=== PATIENT | female | born 1980 | race African-American/Black ===

== ENCOUNTER 2021-08-09 20:04 | Emergency (ER) | payer MEDICAID, OTHER ==
[~2021-08-09] VITALS: Ht 162.6 cm; Wt 83.0 kg
[2021-08-09 20:18] VITALS: BP 153/85
[2021-08-09] MEDS ORDERED: DIPH25CA83 MT (21:14)
[2021-08-09] MEDS ORDERED: LORA10TA7 MT (21:15)
== END 2021-08-09 21:21 | disposition home or self-care (01) ==
LOC: ER 20:04
DX: L25.9 Unspecified contact dermatitis, unspecified cause (principal); J45.909 Unspecified asthma, uncomplicated; Z88.6 Allergy status to analgesic agent
CPT/HCPCS: 99282

== ENCOUNTER 2021-08-26 15:17 | Inpatient (IN) | payer MEDICAID, OTHER ==
[~2021-08-26] VITALS: Ht 162.6 cm; Wt 83.0 kg
[~2021-08-26 15:17] MED LIST: DIPH25CA83 MT; LORA10TA7 MT
[2021-08-26] MEDS ORDERED: PREN1TAB22 PO (15:58)
[2021-08-26] MEDS ORDERED: NALOXONE HCL 0.4 MG/ML 1ML VIAL IM PRN (17:00)
[2021-08-26] MEDS ORDERED: METHYLERGONOVINE MALEATE 0.2 MG/ML IM PRN (17:00)
[2021-08-26] MEDS ORDERED: LIDOCAINE HCL 1% 20ML VIAL (Pyxis) INJ INFIL SCH (17:00)
[2021-08-26] MEDS ORDERED: CARBOPROST TROMETHAMINE 250 MCG/ML AMPUL IM PRN (17:00)
[2021-08-26] MEDS ORDERED: BUTORPHANOL TARTRATE 2 MG/ML VIAL IV PRN (17:00)
[2021-08-26] MEDS ORDERED: MISOPROSTOL 100MCG TABLET VG SCH (17:00)
[2021-08-26 17:02] LABS: CLARITY URINE CLEAR (CLEAR); COLOR URINE YELLOW (YELLOW); KETONES URINE NEGATIVE (NEGATIVE); LEUKOCYTE ESTERASE URINE 3+ (NEGATIVE); NITRITE URINE NEGATIVE (NEGATIVE); OCCULT BLOOD URINE NEGATIVE (NEGATIVE); PROTEIN URINE NEGATIVE (NEGATIVE); SPECIFIC GRAVITY URINE 1.007 (1.005-1.030); UROBILINOGEN URINE 0.2 E.U./dL (0.2-1.0)
[2021-08-26 17:05] LABS: BASOPHILS % 0.6 % (0.0-2.0); EOSINOPHILS % 0.9 % (0.0-5.0); HEMATOCRIT. 37.7 % (36.0-48.0); HEMOGLOBIN. 12.8 g/dL (12.0-16.0); LYMPHOCYTES % 16.8 % (20.0-50.0); MEAN CORPUSCULAR VOLUME 91.4 fL (81.0-99.0); MEAN PLATELET VOLUME 12.2 fl (7.4-10.4); MONOCYTES % 7.4 % (2.0-8.0); NEUTROPHILS % 74.3 % (40.0-76.0); PLATELET 105 x1000/uL (130-400); RED BLOOD CELL COUNT 4.13 mill/uL (4.2-5.4)
[2021-08-26 17:17] LABS: *AMPHETAMINES SCREEN URINE NEGATIVE (NEGATIVE)
[2021-08-26 17:18] LABS: *BARBITURATES SCREEN URINE NEGATIVE (NEGATIVE); *BENZODIAZEPINES SCREEN URINE NEGATIVE (NEGATIVE); *COCAINE SCREEN URINE NEGATIVE (NEGATIVE); METHADONE URINE SCREEN NEGATIVE (NEGATIVE); PHENCYCLIDINE URINE SCREEN NEGATIVE (NEGATIVE)
[2021-08-26 17:20] LABS: CANNABINOID URINE SCREEN NEGATIVE (NEGATIVE)
[2021-08-26 17:24] LABS: INR 0.9; PARTIAL THROMBOPLASTIN TIME 26.2 sec (23.4-31.0)
[2021-08-26 17:29] LABS: OPIATES URINE SCREEN NEGATIVE (NEGATIVE)
[2021-08-26 17:41] LABS: HEPATITIS B SURFACE ANTIGEN NEGATIVE
[2021-08-26] MEDS: DEXT 5%/LR + PITOCIN 20UNITS/L 1,000 ML IV SCH (18:00)
[2021-08-26] MEDS: LACTATED RINGERS 1,000 ML IV SCH ×2 (18:12→20:03)
[2021-08-26] MEDS ORDERED: DIPHENHYDRAMINE 50MG/ML VIAL IV PRN (19:15)
[2021-08-26] MEDS ORDERED: ROPIVACAINE HCL/PF EPIDURAL 200 ML EPI SCH (19:15)
[2021-08-26] MEDS ORDERED: ONDANSETRON HCL 4MG/2ML INJ IV PRN (19:15)
[2021-08-26] MEDS ORDERED: CITRIC ACID/SODIUM CITRATE SOLN 30ML UDC PO NR (20:45)
[2021-08-26] MEDS: MAGNESIUM 20 G PREMIX (L & D) 500 ML IV SCH ×2 (20:54→21:16)
[2021-08-26 21:19] LABS: CHLORIDE 111 mEq/L (98-107)
[2021-08-26 21:22] LABS: D-DIMER 1.78 mg/L FEU (<0.50)
[2021-08-26] MEDS ORDERED: ACETAMINOPHEN 325MG TABLET PO PRN (21:45)
[2021-08-27] MEDS: LACTATED RINGERS 1,000 ML IV SCH (05:30)
[2021-08-27] MEDS ORDERED: FENTANYL CITRATE/PF 50MCG/ML 2ML VIAL ONE ×3 (10:21→18:26)
[2021-08-27] MEDS ORDERED: BENZOCAINE/LANOLIN/ALOE VERA SPRAY TOP PRN (21:00)
[2021-08-27] MEDS ORDERED: ACETAMINOPHEN WITH CODEINE 300/30MG TABLET PO PRN (21:00)
[2021-08-27] MEDS ORDERED: LANOLIN OINT 7GM TUBE TOP PRN (21:00)
[2021-08-27] MEDS ORDERED: GLYCERIN/WITCH HAZEL LEAF MEDICATED PAD TOP PRN (21:00)
[2021-08-27] MEDS: SIMETHICONE 80MG TABLET CHEW PO SCH (21:00)
[2021-08-27] MEDS: DOCUSATE SODIUM 100MG CAPSULE PO SCH (21:00)
[2021-08-27] MEDS ORDERED: HEMORRHOIDAL SUPP PR PRN (21:00)
[2021-08-27] MEDS ORDERED: DEXT 5%/LR + PITOCIN 20UNITS/L 1,000 ML IV SCH (21:00)
[2021-08-27] MEDS: MAGNESIUM/ALUMINUM HYDROXIDE/SIMETHICONE 30ML UDC PO SCH (21:00)
[2021-08-27] MEDS ORDERED: RHO(D) IMMUNE GLOBULIN 300 MCG/SYR IM PRN (21:00)
[2021-08-27] MEDS ORDERED: BISACODYL 10MG SUPP PR PRN (21:00)
[2021-08-27] MEDS ORDERED: LABETALOL HCL 100MG TABLET PO SCH (21:45)
[2021-08-27] MEDS: DEXT 5%/LR + PITOCIN 20UNITS/L 1,000 ML IV SCH (22:21)
[2021-08-28] VITALS (9 sets, daily range): BP systolic 132–155; BP diastolic 80–90
[2021-08-28] MEDS: MAGNESIUM/ALUMINUM HYDROXIDE/SIMETHICONE 30ML UDC PO SCH ×4 (07:30→22:13)
[2021-08-28 07:46] LABS: HEMATOCRIT. 35.8 % (36.0-48.0); HEMOGLOBIN. 11.8 g/dL (12.0-16.0); MEAN CORPUSCULAR VOLUME 94.2 fL (81.0-99.0); MEAN PLATELET VOLUME 12.2 fl (7.4-10.4); PLATELET 100 x1000/uL (130-400); RED CELL DISTRIBUTION WIDTH 14.5 % (11.6-14.6)
[2021-08-28] MEDS: SIMETHICONE 80MG TABLET CHEW PO SCH ×4 (08:00→22:14)
[2021-08-28] MEDS ORDERED: PRENATAL VIT/FE FUMARATE/FA TABLET PO SCH (09:00)
[2021-08-28] MEDS: IBUPROFEN 400MG TABLET PO PRN (09:01)
[2021-08-28] MEDS: LABETALOL HCL 200MG TABLET PO SCH ×2 (10:25→23:45)
[2021-08-28] MEDS: FERROUS SULFATE 325MG TABLET PO SCH ×3 (10:25→17:30)
[2021-08-28 13:52] LABS: PLATELET ESTIMATE DECREASED
[2021-08-28 19:47] LABS: BASOPHILS % 0.3 % (0.0-2.0); EOSINOPHILS % 0.9 % (0.0-5.0); HEMATOCRIT. 39.9 % (36.0-48.0); HEMOGLOBIN. 12.5 g/dL (12.0-16.0); LYMPHOCYTES % 11.6 % (20.0-50.0); MEAN CORPUSCULAR HEMOGLOBIN 29.7 pg (28.0-32.0); MEAN CORPUSCULAR VOLUME 94.8 fL (81.0-99.0); MONOCYTES % 6.2 % (2.0-8.0); PLATELET 114 x1000/uL (130-400); RED BLOOD CELL COUNT 4.21 mill/uL (4.2-5.4); RED CELL DISTRIBUTION WIDTH 14.4 % (11.6-14.6)
[2021-08-28] MEDS: DOCUSATE SODIUM 100MG CAPSULE PO SCH (22:15)
[2021-08-28] MEDS: ACETAMINOPHEN WITH CODEINE 300/30MG TABLET PO PRN (22:18)
[2021-08-29 04:30] VITALS: BP 132/85
[2021-08-29] MEDS: ACETAMINOPHEN WITH CODEINE 300/30MG TABLET PO PRN ×2 (05:08→05:14)
[2021-08-29 07:08] LABS: BASOPHILS % 0.3 % (0.0-2.0); EOSINOPHILS % 1.9 % (0.0-5.0); HEMATOCRIT. 35.8 % (36.0-48.0); HEMOGLOBIN. 11.6 g/dL (12.0-16.0); MEAN CORPUSCULAR HEMOGLOBIN 30.6 pg (28.0-32.0); MEAN CORPUSCULAR VOLUME 94.6 fL (81.0-99.0); MEAN PLATELET VOLUME 12.1 fl (7.4-10.4); MONOCYTES % 7.9 % (2.0-8.0); NEUTROPHILS % 72.9 % (40.0-76.0); PLATELET 100 x1000/uL (130-400); RED BLOOD CELL COUNT 3.78 mill/uL (4.2-5.4); RED CELL DISTRIBUTION WIDTH 14.2 % (11.6-14.6)
[2021-08-29 07:30] VITALS: BP 129/83
[2021-08-29] MEDS ORDERED: IBUP-2030 MT (08:40)
[2021-08-29] MEDS ORDERED: LABE200T9 MT (08:40)
[2021-08-29] MEDS: SIMETHICONE 80MG TABLET CHEW PO SCH (09:00)
[2021-08-29] MEDS: FERROUS SULFATE 325MG TABLET PO SCH (09:09)
[2021-08-29] MEDS: IBUPROFEN 400MG TABLET PO PRN (09:09)
[2021-08-29] MEDS: MAGNESIUM/ALUMINUM HYDROXIDE/SIMETHICONE 30ML UDC PO SCH (09:09)
[2021-08-29] MEDS: LABETALOL HCL 200MG TABLET PO SCH (11:46)
== END 2021-08-29 15:10 | disposition home or self-care (01) | DRG 560 ==
LOC: 8 EST LDRP 15:17 → OBSVTOIN 15:17 → 8EST 08-27 23:00
PROVIDERS: ADMIT Obstetrics & Gynecology; ATTEND Obstetrics & Gynecology
PROC: 10E0XZZ Delivery of Products of Conception, External Approach (ICD-10-PCS; principal; 2021-08-27)
PROC: 3E0R3BZ Introduction of Anesthetic Agent into Spinal Canal, Percutaneous Approach (ICD-10-PCS; 2021-08-27)
PROC: 00HU33Z Insertion of Infusion Device into Spinal Canal, Percutaneous Approach (ICD-10-PCS; 2021-08-27)
DX: O11.4 Pre-existing hypertension with pre-eclampsia, complicating childbirth (principal); Z37.0 Single live birth; Z20.822 Contact with and (suspected) exposure to COVID-19; Z3A.38 38 weeks gestation of pregnancy; Z88.6 Allergy status to analgesic agent; Z91.018 Allergy to other foods; Z86.32 Personal history of gestational diabetes
CPT/HCPCS: 36415; 76805; 76818; 80053; 80305; 81003; 82962; 83735; 84550; 85025; 85379; 85384; 86592; 86703; 86762; 86850; 86900; 87340; 87426; 99281; J2405; J2590; J2795; J3010; J3475; J7120